=== PATIENT | male | born 1960 | race Caucasian/White ===

== ENCOUNTER → 2016-12-07 | Outpatient (CLI) | payer OTHER | LOC: CIMAGING 10:55 | PROVIDERS: ATTEND Family Medicine | DX: R07.81 Pleurodynia (principal) | CPT/HCPCS: 71020-PO ==

== ENCOUNTER → 2017-02-24 | Outpatient (CLI) | payer OTHER | LOC: CIMAGING 08:29 | PROVIDERS: ATTEND Internal Medicine | DX: R05 Cough (principal); R91.8 Other nonspecific abnormal finding of lung field | CPT/HCPCS: 71020-PO ==

== ENCOUNTER → 2017-03-11 | Outpatient (CLI) | payer OTHER | LOC: CIMAGING 15:01 | PROVIDERS: ATTEND Internal Medicine | DX: Z13.83 Encounter for screening for respiratory disorder NEC (principal) | CPT/HCPCS: 71020-PO ==

== ENCOUNTER → 2017-10-28 | Outpatient (CLI) | payer OTHER | LOC: CIMAGING 11:16 | PROVIDERS: ATTEND Family Medicine | DX: R76.12 Nonspecific reaction to cell mediated immunity measurement of gamma interferon antigen response without active tuberculosis (principal) | CPT/HCPCS: 71046-PO ==